=== PATIENT | female | born 1990 | race African-American/Black ===

== ENCOUNTER → 2022-06-12 12:21 | Outpatient (CLI) | payer OTHER, SELFPAY | DX: M54.12 Radiculopathy, cervical region (principal) | CPT/HCPCS: 95886; 95909 ==

== ENCOUNTER → 2023-06-04 | Outpatient (CLI) | payer OTHER, SELFPAY ==
--- NOTE | 2023-06-04 07:17 | DI.MRI.S_ITS ---
PROCEDURE: MR TMJ WO CON INDICATIONS: 33-year-old female with worsening bilateral jaw pain TECHNIQUE: Axial T1 spin echo, coronal and sagittal PD fast spin echo through the temporomandibular joints, in both the closed- and open-mouth positions. COMPARISON: None. FINDINGS: Image quality: Excellent. Right: Joint is normally aligned on closed and open-mouth positioning. Articular disk demonstrates normal location and morphology. No bony erosions or osteophytes. Left: Joint is normally aligned on closed and open-mouth positioning. Articular disk demonstrates normal location and morphology. No bony erosions or osteophytes. IMPRESSION: Normal MRI of the temporomandibular joints Approved by: Nnamdi Matias M.D. on 06/04/2023 at 13:34
== END ==
PROVIDERS: Referring Provider Dentist Oral and Maxillofacial Surgery; Visit Provider Dentist Oral and Maxillofacial Surgery
DX: R68.84 Jaw pain (principal)
CPT/HCPCS: 70336

== ENCOUNTER → 2024-08-29 08:29 | Outpatient (CLI) | payer OTHER, SELFPAY ==
--- NOTE | 2024-08-29 08:30 | DI.RAD.S_ITS ---
PROCEDURE: XR CERVICAL SPINE 4V OR 5V INDICATIONS: JAW PAIN TECHNIQUE: Five views of the cervical spine acquired. COMPARISON: [facility], MR, MR CERVICAL SPINE WITHOUT CONTRAST, 02/12/2024, 18:33. FINDINGS: Bones: No acute fractures or dislocations to the T1 level. Oblique images demonstrate no bony foraminal stenoses. Minimal degenerative changes at the mid to lower cervical spine. Soft tissues: No prevertebral soft tissue swelling. IMPRESSION: No acute cervical spine fracture or traumatic subluxation. Minimal spondylosis. Approved by: Bebeto Giron M.D. on 08/29/2024 at 9:04
== END ==
PROVIDERS: PCP Nurse Practitioner Family; Referring Provider Physical Medicine & Rehabilitation; Visit Provider Physical Medicine & Rehabilitation
DX: M47.22 Other spondylosis with radiculopathy, cervical region (principal); R68.84 Jaw pain; G44.86 Cervicogenic headache; F41.9 Anxiety disorder, unspecified; G43.909 Migraine, unspecified, not intractable, without status migrainosus; Z87.39 Personal history of other diseases of the musculoskeletal system and connective tissue
CPT/HCPCS: 72050; 99214

== ENCOUNTER 2024-09-20 08:43 | Outpatient (CLI) | payer OTHER, SELFPAY ==
[2024-09-20] VITALS (8 sets, daily range): BP systolic 104–117; BP diastolic 54–79; PULSE 55–80; RESP 14–16; TEMP 36.4; O2SAT 97–100
[2024-09-20] MEDS: MIDAZOLAM 2 MG/2 ML VIAL IV (09:58)
[2024-09-20] MEDS: DEXAMETHASONE 10 MG/ML VIAL 30 MG INJ (10:04)
[2024-09-20] MEDS: BUPIVACAINE 0.5% (PF) 10 ML VIAL 2 ML INJ (10:05)
[2024-09-20] MEDS: iopamidoL 15 ML VIAL 3 ML INJ (10:05)
--- NOTE | 2024-09-20 10:16 | P.PCN_ITS ---
Date/Time/Diagnoses Date of procedure: 09/20/24 Time of procedure: 10:16 Pre-procedure diagnosis: 1. FACET ARTHROPATHY 2. AXIAL NECK PAIN Post-procedure diagnosis: same Procedure Notes Procedure: 1. FLUOROSCOPICALLY GUIDED, CONTRAST-CONTROLLED LEFT C4/5, C5/6 AND C6/7 FACET JOINT INJECTIONS WITH CONSCIOUS SEDATION. Indications: Bee is referred by FARIDA Campos for treatment of Axial Neck Pain Physician: Mega Carrillo Total Fluoroscopy time (seconds): 12 Total sedation minutes: 14 Complications: none Procedure in detail & Post-procedure care: DESCRIPTION OF PROCEDURE Fluoroscopically guided, contrast-controlled left C4/5, C5/6 and C6/7 facet joint injections with conscious sedation. Following review of allergy and review of potential side effects and complications, including, but not necessarily limited to, infection, allergic reaction, local tissue breakdown, stroke, temporary or permanent nerve injury and paralysis, the patient indicated that the patient understood and agreed to proceed. An informed consent document was signed by the patient, witnessed by a nurse, and placed in the patient's chart. Additionally, other treatment options including medications, modalities, and physical therapy were reviewed with the patient. After review of previous anaesthesic history and IV conscious sedation the patient was deemed safe to proceed with today?s procedure with IV conscious sedation as ASA class II designation. Safety time-out was performed to confirm patient ID, procedure to be performed and site of procedure. IV sedation was accomplished with a combination of 2mg of Versed was administered by the RN after DO order, titrated to patient comfort during the course of the procedure while the patient remained responsive to all verbal commands In the prone position, following sterile prep and drape of the cervical spine region, the posterior aspect of the left C4/5, C5/6 and C6/7 facet joints were identified fluoroscopically. The skin was anesthetized via a 25-gauge 1.5-inch needle with 1% lidocaine solution into the corresponding facet joints. At this point, a 25-gauge 2.5-inch spinal needle was atraumatically introduced and advanced under fluoroscopic guidance into the corresponding facet joints. Following negative aspiration, injections of approximately 0.2cc of Isovue 200 confirmed interarticular placement without vascular uptake. At this point, a total of 1cc including 0.5cc or 5mg of dexamethasone combined with 0.5cc of 1% lidocaine solution was injected without complication into each of the corresponding facet joints. The procedure tolerated the procedure well without signs or symptoms of complications prior to transfer to the recovery area continued monitoring without incident. The patient was then transferred to the recovery area where they were observed for an appropriate period of time after the injection. The patient reported a VAS score of 7 prior to the procedure and a post- procedure VAS of 0. POST OP INSTRUCTIONS They were provided a Pain Log to continue to record their response to the target-specific procedure prior to their follow-up visit with their referring physician. Additionally, specific post-injection care instructions and a contact number to our office were provided if concerns arise regarding possible complications associated with the procedure are suspected.
== END 2024-09-20 10:30 | disposition home or self-care (01) ==
PROVIDERS: PCP Nurse Practitioner Family; Referring Provider Physical Medicine & Rehabilitation; Visit Provider Physical Medicine & Rehabilitation
DX: M47.812 Spondylosis without myelopathy or radiculopathy, cervical region (principal); M54.2 Cervicalgia
CPT/HCPCS: 64490; 64491; 64492; 99152; J1100; J2250